=== PATIENT | female | born 1945 | race Caucasian/White ===

== ENCOUNTER 2018-10-14 14:42 | Inpatient (IN) | payer MEDICARE, OTHER | END 2018-10-18 18:48 | disposition home or self-care (01) | LOC: ER 14:42 → SUR 3N 10-15 09:33 → ED HOLD 15:28 | DX: K56.600 Partial intestinal obstruction, unspecified as to cause (principal); J44.9 Chronic obstructive pulmonary disease, unspecified; I10 Essential (primary) hypertension; G89.29 Other chronic pain; E87.6 Hypokalemia ==